=== PATIENT | male | born 1960 | race Caucasian/White ===

== ENCOUNTER 2019-04-28 13:42 | Emergency (ER) | payer OTHER ==
[~2019-04-28] VITALS: Ht 177.8 cm; Wt 103.4 kg
[~2019-04-28 13:42] MED LIST: SYNTHROID125 MCG PO
[2019-04-28] MEDS ORDERED: ASPIRIN 81 MG CHEW TAB PO ONE (14:45)
[2019-04-28 15:14] LABS: BASOPHILS % 0.3 % (0.0-1.0); EOSINOPHILS # (AUTO) 0.1 (0.0-0.4); EOSINOPHILS % 0.9 % (0.0-6.0); HEMATOCRIT 43.6 % (38.2-49.6); HEMOGLOBIN 15.3 g/dL (14.0-18.0); LYMPHOCYTES # (AUTO) 1.5 (1.0-3.2); MEAN CORPUSCULAR HEMOGLOBIN 31.4 pg (28-32); MEAN CORPUSCULAR HGB CONC 35.1 g/dL (31-35); MEAN CORPUSCULAR VOLUME 89.3 fL (81-99); MONOCYTES # (AUTO) 0.6 (0.2-0.8); MONOCYTES % 6.8 % (4.4-11.3); NEUTROPHILS # (AUTO) 6.6 (2.1-6.9); NEUTROPHILS % 74.5 % (38.7-80.0); PLATELET COUNT 206 x10e3/uL (140-360); RED BLOOD COUNT 4.88 x10e6/uL (4.3-5.7); RED CELL DISTRIBUTION WIDTH 13.8 % (11.7-14.4)
[2019-04-28 15:22] LABS: INR 0.98; PROTHROMBIN TIME 13.5 seconds (11.9-14.5)
[2019-04-28 15:23] LABS: PARTIAL THROMBOPLASTIN TIME 30.9 seconds (23.8-35.5)
[2019-04-28 15:30] LABS: ALANINE AMINOTRANSFERASE 20 IU/L (0-55); ALBUMIN 4.4 g/dL (3.5-5.0); ALBUMIN/GLOBULIN RATIO 1.5 (0.8-2.0); ALKALINE PHOSPHATASE 62 IU/L (40-150); ANION GAP 11.8 mmol/L (8-16); BLOOD UREA NITROGEN 12 mg/dL (7-26); BUN/CREATININE RATIO 12 (6-25); CALCIUM 10.1 mg/dL (8.4-10.2); CARBON DIOXIDE 26 mmol/L (22-29); CHLORIDE 104 mmol/L (98-107); CREATINE KINASE 94 IU/L (30-200); EST GLOMERULAR FILTRATION RATE > 60 ML/MIN (60-); GLUCOSE 99 mg/dL (74-118); POTASSIUM 3.8 mmol/L (3.5-5.1); SODIUM 138 mmol/L (136-145)
--- NOTE | 2019-04-28 15:44 | Diagnostic Imaging Report ---
Examination: Single AP view of the chest. COMPARISON: None. INDICATION: Chest pain DISCUSSION: Lines/tubes: None. Lungs: No consolidation. Prominent interstitial markings in the lung bases. Pleura: No pleural effusion or pneumothorax. Heart and mediastinum: The heart and the mediastinum are unremarkable. Bones and soft tissues: No acute bony abnormalities. IMPRESSION: 1. No acute cardiopulmonary abnormalities. Signed by: Dr. Chau Deal M.D. on 04/28/2019 3:40 PM
--- NOTE | 2019-04-28 16:50 | Diagnostic Imaging Report ---
History: Numbness and tingling Comparison studies: None Technique: Axial images were obtained through the cervical region.. Coronal and sagittal images reconstructed from the axial data. Dose modulation, iterative reconstruction, and/or weight based adjustment of the mA/kV was utilized to reduce the radiation dose to as low as reasonably achievable. Intravenous contrast: None Findings: Fractures: None. Soft tissues: No gross abnormalities. Atlantoaxial articulation: Intact. Alignment: Reversal of the usual lordosis is centered at C5. No scoliosis. Cervicomedullary junction: No abnormalities. The foramen magnum is patent. Vertebrae: No infection or neoplasm. Degenerative changes: C2-C3: Mild left foraminal stenosis due to facet arthrosis. Patent spinal canal and right foramen. C3-C4: No abnormalities. C4-C5: Mildly degenerated disc. Mild right foraminal stenosis due to uncoarthrosis. Patent spinal canal and left foramen. C5-C6: Mildly degenerated disc. Moderate right foraminal stenosis due to uncoarthrosis. Patent spinal canal and left foramen. C6-C7: Mildly degenerated disc. Foraminal stenosis, severe right, moderate left due to uncoarthrosis. Patent spinal canal. C7-T1: No abnormalities. IMPRESSION: No acute abnormalities. Degenerative changes: 1. Mildly degenerated discs from C4 to C7. 2. Foraminal stenosis moderate right C5-6, bilaterally at C6-7 (R>L) 3. Patent spinal canal. Signed by: Dr. Demetris Blum M.D. on 04/28/2019 4:47 PM
[2019-04-28 17:32] VITALS: BP 122/86
== END 2019-04-28 17:38 | disposition home or self-care (01) ==
LOC: ER 13:42
DX: R20.2 Paresthesia of skin (principal); W16.92XA Jumping or diving into unspecified water causing other injury, initial encounter; Y93.16 Activity, rowing, canoeing, kayaking, rafting and tubing; I10 Essential (primary) hypertension; E11.9 Type 2 diabetes mellitus without complications
CPT/HCPCS: 36415; 71045; 72125; 80053; 82550; 82553; 84484; 85025; 85610; 85730; 93005; 99283